=== PATIENT | female | born 1985 | race Caucasian/White ===

== ENCOUNTER → 2016-06-21 | Outpatient (CLI) | payer OTHER ==
[~2016-06-21] MED LIST: AMOXICILLIN500 M1 PO; NO MEDICATIONS; ORTHO TRI-7 DAYSX 3 PO; ZYRTEC PO
--- NOTE | ~2016-06-21 | CR127 ---
[facility] A Service of [facility] & [facility] [place] RADIOLOGY TEXT RESULTS PATIENT: AELJO SADLER LOCATION: [facility] : [birth year] UNIT #: [id number] AGE: [address]: Tiffany Del Real MD SEX: F ORDER DR: [id number] [place] [id number] O MR#: [id number] Acc #: [id number] NAME: ALEJO SADLER : 1985 SEX: F STUDY DATE/TIME: 06/21/2016 13:21 UNIT: [facility] ROOM: STUDY DESCRIPTION: CR Foot Complete Min 3 View Rt Attending Physician: Tiffany Del Real M.D. Referring Physician: Tiffany Del Real M.D. Ordering Physician: Tiffany Del Real M.D. Primary Care Physician: Tiffany Del Real M.D. MEDICAL IMAGING REPORT This report is preliminary unless electronic signature is present. EXAM Right foot, 06/21/2016. HISTORY 30-year-old female with unexplained right foot pain. FINDINGS 3 views of the right foot demonstrate intact cortex throughout. Mineralization is preserved. Small joints are preserved. Soft tissues appear normal. IMPRESSION Negative right foot. Dictated by... Shayne Staton M.D. THIS IS AN ELECTRONICALLY VERIFIED REPORT Shayne Staton M.D. at 06/22/2016 8:02 AM LILLY/hilda TD: 06/21/2016 18:06 JOB #: [id number] MEDICAL IMAGING REPORT
== END | disposition home or self-care (01) ==
LOC: SRAD 13:15
DX: M79.671 Pain in right foot (principal)
CPT/HCPCS: 73630

== ENCOUNTER 2016-09-26 20:42 | Emergency (ER) | payer OTHER | END 2016-09-26 21:32 | disposition left against medical advice (07) | LOC: SED 20:42 | DX: Z53.21 Procedure and treatment not carried out due to patient leaving prior to being seen by health care provider (principal) ==